=== PATIENT | male | born 1985 | race Two or more races ===

== ENCOUNTER 2019-01-10 14:06 | Emergency (ER) | payer SELFPAY ==
[~2019-01-10] VITALS: Ht 170.2 cm; Wt 79.0 kg
[2019-01-10 14:32] VITALS: BP 120/80
== END 2019-01-10 20:55 | disposition left against medical advice (07) ==
LOC: ER 14:06
DX: M54.2 Cervicalgia (principal); Z53.21 Procedure and treatment not carried out due to patient leaving prior to being seen by health care provider